=== PATIENT | male | born 1960 | race Caucasian/White ===

== ENCOUNTER 2020-02-27 16:41 | Emergency (ER) | payer BC, SELFPAY ==
--- NOTE | 2020-02-27 16:45 | ED.EXTPRO ---
HPI - Extremity Problem General Chief complaint: Extremity Injury, Lower Stated complaint: rt ankle pain Time Seen by Provider: 02/27/20 16:55 Source: patient and RN notes reviewed Mode of arrival: ambulatory Limitations: no limitations History of Present Illness HPI Narrative: 59-year-old male presents with concern for right ankle pain, swelling, redness, warmth. Denies injury. Reports symptoms started with a rash area on his foot, approximately 5 days ago. Reports it became swollen approximately 2 days ago. He reports feeling of general malaise yesterday. He denies fever, body aches, cough, shortness of breath, calf pain, calf warmth, calf redness. MD Complaint: joint paint Related Data Home Medications Medication Instructions Recorded Confirmed hydrochlorothiazide 02/27/20 losartan 02/27/20 naproxen 02/27/20 Allergies Allergy/AdvReac Type Severity Reaction Status Date / Time No Known Allergies Allergy Verified 02/27/20 16:57 Review of Systems Review of Systems: Narrative: CONSTITUTIONAL: Denies malaise, chills, sweats, or fever. CARDIOVASCULAR: Denies chest pain, palpitations RESPIRATORY: Denies cough or dyspnea. GASTROINTESTINAL: Reports one episode of nausea. Denies vomiting, diarrhea, bloody, or mucous stools. SKIN: Reports right ankle, foot redness, swelling, warmth, tenderness MUSCULOSKELETAL: Denies musculoskeletal pain NEUROLOGIC: Denies numbness, weakness All systems reviewed & are unremarkable except as noted in HPI and below PMFSH Comments At time of signature, agree with nursing past medical, surgical, social and family history. There is no relevant family history pertinent to the presenting complaint Exam Narrative: Exam Narrative: GENERAL: Well-appearing, well-nourished, and in no acute distress. HEAD: Normocephalic EYES: PERRLA, conjunctivae clear ENT: Mucous membranes moist. NECK: Supple. CHEST: No respiratory distress. Clear to auscultation. No bony deformities, no asymmetry. Speaks in full sentences. HEART: Regular rate and rhythm. No murmur heard. Normal peripheral pulses. EXTREMITIES: Right lower extremity has grossly normal range of motion, grossly normal strength and sensation. SKIN: Warm, dry. Edema, erythema, induration, warmth noted to the right foot, ankle, anterior lower leg, excluding the knee. Posterior lower leg above the ankle has weeping blisters with serous fluid. No calf warmth, redness, tenderness, claudication NEURO: Alert and oriented x3. PSYCH: Normal mood and affect Course Course Emergency Course: Patient is aware of diagnosis, understands and agrees to treatment plan. Anticipatory guidance given. Patient agrees to follow-up as directed and is aware of reasons to seek care at the emergency department. Portions of this record may have been created with voice recognition software Vital Signs Vital signs: Vital Signs Temperature 97.6 F 02/27/20 16:54 Pulse Rate 121 H 02/27/20 16:54 Respiratory Rate 16 02/27/20 16:54 Blood Pressure 193/86 H 02/27/20 16:54 Pulse Oximetry 100 02/27/20 16:54 Temperature 97.6 F 02/27/20 16:54 Pulse Rate 121 H 02/27/20 16:54 Respiratory Rate 16 02/27/20 16:54 Blood Pressure 193/86 H 02/27/20 16:54 Pulse Oximetry 100 02/27/20 16:54 Reviewed. Patient has history of hypertension MDM - Extremity (Nontraumatic) MDM Narrative Medical decision making narrative: Exam findings show no acute concerns or changes; patient is non-toxic appearing and is in no distress. Patient is appropriate for outpatient treatment and follow-up. Differential Diagnosis Differential diagnosis: Likely gout, cellulitis, superficial thrombophlebitis, lower extremity edema and other (Injury, trauma) Critical Care Time Critical Care Time Critical Care Time: No Discharge Plan Discharge Clinical Impression: Cellulitis Qualifiers: Site of cellulitis: extremity Site of cellulitis of extremity: lower extremity Laterality:
[2020-02-27 16:54] VITALS: BP 193/86; PULSE 121; RESP 16; TEMP 36.4; O2SAT 100
== END 2020-02-27 17:18 | disposition home or self-care (01) ==
PROVIDERS: Emergency Provider Nurse Practitioner
DX: L03.115 Cellulitis of right lower limb (principal); I10 Essential (primary) hypertension
CPT/HCPCS: 99213; G0463